=== PATIENT | male | born 1985 | race Caucasian/White ===

== ENCOUNTER 2017-04-05 17:55 | Emergency (ER) | payer SELFPAY ==
[2017-04-05 18:34] VITALS: BP 125/80
[2017-04-05] MEDS ORDERED: Ketorolac 60 MG/2 ML SDV IM ONE (19:03)
--- NOTE | 2017-04-05 19:54 | CT ---
Head CT Technique: Multiple axial sections through the brain were obtained. Intravenous contrast was not utilized. Comparison: No previous intracranial imaging. Findings: Ventricles along with basal cisterns and sulci over the convexities are within normal limits for the patient's age. No abnormal parenchymal densities are seen. No evidence of intracranial hemorrhage. No midline shift or mass effect is seen. Bone window settings were reviewed which shows no acute calvarial abnormality. Impression: 1. Nothing acute is seen on noncontrast head CT exam. Diagnostic code #1
--- NOTE | 2017-04-05 19:54 | CT ---
CT cervical spine Technique: Multiple axial sections were obtained from above C1 inferiorly to the bottom of T1. Reconstructed sagittal and coronal images were reviewed. Findings: Posterior skull base is intact. Vertebral body heights and disc spaces are maintained. No fracture is seen. No bony central or bony neural foraminal stenosis is seen. No abnormal subluxation is seen on the reconstructed sagittal images. Impression: 1. Nothing acute is seen on CT study of the cervical spine. Diagnostic code #1
--- NOTE | 2017-04-05 19:56 | CT ---
CT facial bones Technique: Multiple axial sections through the facial bones were obtained. Reconstructed coronal and sagittal images were reviewed. Findings: Mild mucosal thickening is seen within the right maxillary sinuses as well as ethmoid sinuses. Minimal mucosal thickening is seen within the inferior left maxillary sinus. Right and left globes are symmetric. Dental caries appear to be present on both sides mostly within the maxillary molars. No facial bone fracture is identified. Impression: 1. Mild sinus findings as noted above most likely chronic. 2. Dental caries appear to be present mostly within the maxillary molars. 3. No acute facial bone abnormality is seen. Diagnostic code #3
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
== END 2017-04-05 20:24 | disposition home or self-care (01) ==
LOC: JD.ED 17:55
DX: S01.511A Laceration without foreign body of lip, initial encounter (principal); F17.210 Nicotine dependence, cigarettes, uncomplicated; Y04.2XXA Assault by strike against or bumped into by another person, initial encounter
CPT/HCPCS: 70450; 70486; 72125; 96372; 99283; J1885

== ENCOUNTER 2017-09-29 04:55 | Emergency (ER) | payer SELFPAY ==
[2017-09-29 05:08] VITALS: BP 156/98
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
== END 2017-09-29 05:56 | disposition home or self-care (01) ==
LOC: JD.ED 04:55
DX: S31.050A Open bite of lower back and pelvis without penetration into retroperitoneum, initial encounter (principal); F17.210 Nicotine dependence, cigarettes, uncomplicated; W50.3XXA Accidental bite by another person, initial encounter
CPT/HCPCS: 99283

== ENCOUNTER 2019-04-23 18:15 | Emergency (ER) | payer MEDICAID ==
[2019-04-23 18:36] VITALS: BP 117/90; PULSE 71
[2019-04-23] MEDS ORDERED: Ketorolac 60 MG/2 ML SDV IM ONE (19:07)
--- NOTE | 2019-04-23 19:14 | EDM.PDOC ---
ED HPI GENERAL MEDICAL PROBLEM - General Chief Complaint: Upper Extremity Injury/Pain Stated Complaint: LT WRIST PAIN Time Seen by Provider: 04/23/19 18:26 Source of Information: Reports: Patient, RN Notes Reviewed History Limitations: Reports: No Limitations - History of Present Illness INITIAL COMMENTS - FREE TEXT/NARRATIVE: Patient is a 33-year-old male who presents to the ED for the evaluation of left wrist/hand pain. Patient states that this started pretty suddenly around 3 days ago, he is not really sure of what caused it. There is no trauma to the area that he can recount. Patient states that he does have some pain into his forearm with since last extension of his wrist. Patient states there is some associated numbness and tingling with this. 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 He states he is right-handed. He has been using 800 mg ibuprofen, and this did not seem to help much. His last dose was this morning. He would rate his pain at a 10 out of 10 with any sort of movement. Patient does not have a primary care provider. Left Hand Pain Score (Numeric/FACES): 10 - Related Data Allergies Allergy/AdvReac Type Severity Reaction Status Date / Time No Known Allergies Allergy Verified 04/23/19 18:36 Home Meds: Home Meds Buprenorphine HCl/Naloxone HCl [Suboxone 4 mg-1 mg Sl Film] 16.25 mg SL DAILY [History] predniSONE 20 mg PO ASDIRECTED #15 tab 04/23/19 [Rx] Past Medical History Psychiatric History: Reports: Addiction - Past Surgical History Musculoskeletal Surgical History: Reports: ORIF Social & Family History - Family History Family Medical History: Noncontributory - Tobacco Use Smoking Status *Q: Current Every Day Smoker Years of Tobacco use: 5 Packs/Tins Daily: 0.5 - Caffeine Use Caffeine Use: Reports: Coffee - Recreational Drug Use Recreational Drug Use: No - Living Situation & Occupation Living situation: Reports: Single, with Significant Other (Girlfriend + her daughter) Occupation: Employed ([employer]) Review of Systems - Review of Systems Review Of Systems: See Below Constitutional: Denies: Chills, Fever Respiratory: Denies: Shortness of Breath, Cough Cardiovascular: Denies: Chest Pain Musculoskeletal: Reports: Joint Swelling (Left wrist) Skin: Denies: Bruising, Erythema Neurological: Reports: Numbness (L wrist), Tingling (L wrist) ED EXAM, GENERAL - Physical Exam Exam: See Below Exam Limited By: No Limitations General Appearance: Alert, WD/WN, No Apparent Distress Eye Exam: Bilateral Eye: EOMI, Normal Inspection, PERRL Respiratory/Chest: No Respiratory Distress, Lungs Clear, Normal Breath Sounds, No Accessory Muscle Use, Chest Non-Tender Cardiovascular: Normal Peripheral Pulses, Regular Rate, Rhythm, No Murmur Peripheral Pulses: 3+: Radial (L), Radial (R) Extremities: Normal Inspection, Normal Capillary Refill, Limited Range of Motion (of L wrist with flexion/extension), Other (tinel's slightly positive) Neurological: Alert, Oriented, Normal Cognition, No Motor/Sensory Deficits Psychiatric: Normal Affect, Normal Mood Skin Exam: Warm, Dry, Intact, Normal Color, No Rash Course - Vital Signs Last Recorded V/S: Last Vital Signs Temp 98.6 F 04/23/19 18:34 Pulse 71 04/23/19 18:34 Resp 16 04/23/19 18:34 BP 117/90 04/23/19 18:34 Pulse Ox 98 04/23/19 18:34 - Orders/Labs/Meds Orders: Active Orders 24 hr Category Date Time Status Wrist Comp Min 3V Lt [CR] Stat Exams 04/23/19 19:07 Ordered DME for Discharge [COMM] Routine Oth 04/23/19 19:46 Ordered Meds: Medications Discontinued Medications Generic Name Dose Route Start Last Admin Trade Name Freq PRN Reason Stop Dose Admin Ketorolac Tromethamine 60 mg 04/23/19 19:07 04/23/19 19:19 Toradol IM 04/23/19 19:08 60 mg ONETIME ONE Administration - Re-Assessments/Exams Free Text/Narrative Re-Assessment/Exam: 04/23/19 19:13 Patient presents to the ED for evaluation of left wrist pain. Did order left wrist x-ray, 60 mg IM Toradol for initial management. Due to the patient's history of repetitive motions at work, I suspect possible carpal tunnel. I did explain this to the and the patient, and I did tell him conservative management should be tried before they have a further Ortho follow-up. They seem to be understanding of this at this time. 04/23/19 19:46 X-ray is done and demonstrates no fracture or other bony abnormalities at this time. Patient will be discharged home with a wrist splint and a prescription for prednisone on the working notion that this might be carpal tunnel. Departure - Departure Time of Disposition: 19:47 Disposition: Home, Self-Care 01 Condition: Fair Clinical Impression: Pain and swelling of left wrist - Discharge Information *PRESCRIPTION DRUG MONITORING PROGRAM REVIEWED*: No *COPY OF PRESCRIPTION DRUG MONITORING REPORT IN PATIENT JOHN: No Prescriptions: predniSONE 20 mg PO ASDIRECTED #15 tab Instructions: Wrist Pain, Adult, [id number] Referrals: PCP,None [Primary Care Provider] - Forms: ED Department Discharge Additional Instructions: You have been evaluated in the ED for your left wrist pain. Your x-ray demonstrated no obvious fracture or bony abnormality. Please use ice as tolerated to the affected area. Please try to elevate the affected area to relieve swelling. You were given a prescription for prednisone, please take as directed for further pain/inflammation relief. Please use the wrist splint provided, especially at night, you may also use during the day if it provides you pain relief. Recommend you follow-up with your primary care physician in about 1 week's time or after you finish the prednisone, please call [phone] to follow-up with a family care provider of choice. Please return to ED if your symptoms should change or worsen. Sepsis Event Note - Evaluation Sepsis Screening Result: No Definite Risk - Focused Exam Vital Signs: Vital Signs Temp Pulse Resp BP Pulse Ox 04/23/19 18:34 98.6 F 71 16 117/90 98 Date Exam was Performed: 04/23/19 Time Exam was Performed: 19:46 - My Orders Last 24 Hours: My Active Orders 04/23/19 19:07 Wrist Comp Min 3V Lt [CR] Stat 04/23/19 19:46 DME for Discharge [COMM] Routine - Assessment/Plan Last 24 Hours: My Active Orders 04/23/19 19:07 Wrist Comp Min 3V Lt [CR] Stat 04/23/19 19:46 DME for Discharge [COMM] Routine
--- NOTE | 2019-04-24 08:29 | CR ---
Left wrist: Four views of the left wrist were obtained. Comparison: Previous left wrist study of 01/05/18. Joint spaces are preserved. No fracture, dislocation or other bony abnormality is appreciated. Impression: 1. No abnormality is identified on left wrist exam. 2. No change from previous study is seen. Diagnostic code #1 This report was dictated in [place] Standard Time
== END 2019-04-23 20:13 | disposition home or self-care (01) ==
LOC: JD.ED 18:15
DX: M25.432 Effusion, left wrist (principal); F17.210 Nicotine dependence, cigarettes, uncomplicated
CPT/HCPCS: 73110; 96372; 99284; J1885; 99283

== ENCOUNTER 2023-06-18 15:49 | Emergency (ER) | payer BC, MEDICAID ==
[2023-06-18 16:02] VITALS: BP 116/64; PULSE 89
[2023-06-18] MEDS ORDERED: Cyclobenzaprine 10 MG Tab PO ONE ×2 (16:11→16:21)
[2023-06-18] MEDS: Ketorolac 60 MG/2 ML SDV IM ONE (16:34)
== END 2023-06-18 16:53 | disposition home or self-care (01) ==
LOC: JD.ED 15:49
DX: S39.012A Strain of muscle, fascia and tendon of lower back, initial encounter (principal); Z79.899 Other long term (current) drug therapy; X50.0XXA Overexertion from strenuous movement or load, initial encounter; Y93.89 Activity, other specified
CPT/HCPCS: 96372; 99283; J1885

== ENCOUNTER 2024-01-02 13:02 | Emergency (ER) | payer SELFPAY ==
[2024-01-02 13:14] VITALS: PULSE 97
[2024-01-02 13:55] LABS: BASOPHILS PERCENT AUTO 0.3 % (0.0-1.0); EOSINOPHILS ABSOLUTE AUTO 0.1 K/mm3 (0.0-0.4); EOSINOPHILS PERCENT AUTO 1.5 % (0.0-6.0); HEMATOCRIT 44.8 % (42.0-52.0); HEMOGLOBIN 15.5 gm/dl (14.0-18.0); IMMATURE GRAN ABSOLUTE AUTO 0.03 K/mm3 (0.00-0.05); IMMATURE GRAN PERCENT AUTO 0.3 % (0.0-0.4); LYMPHOCYTES ABSOLUTE AUTO 1.7 K/mm3 (1.0-4.8); LYMPHOCYTES PERCENT AUTO 19.4 % (24.0-44.0); MEAN CORPUSCULAR HEMOGLOBIN 29.2 pg (28.0-32.0); MEAN CORPUSCULAR HGB CONC 34.6 g/dl (32.0-36.0); MEAN CORPUSCULAR VOLUME 84.5 fl (83.0-99.0); MEAN PLATELET VOLUME 9.3 fl (9.4-12.4); MONOCYTES ABSOLUTE AUTO 0.3 K/mm3 (0.0-0.8); MONOCYTES PERCENT AUTO 3.8 % (0.0-8.0); NEUTROPHILS ABSOLUTE AUTO 6.5 K/mm3 (1.8-7.7); NEUTROPHILS PERCENT AUTO 74.7 % (41.0-71.0); PLATELET COUNT,PLT 271 K/mm3 (150-400); WHITE BLOOD CELL COUNT,WBC 8.75 K/mm3 (3.9-11.3)
[2024-01-02 14:22] LABS: BARBITURATE SCREEN,URINE NEGATIVE (CUTOFF=200); BENZODIAZEPINES SCREEN,URINE NEGATIVE (CUTOFF=150); BUPRENORPHINE SCREEN,URINE NEGATIVE (CUTOFF=10); METHADONE SCREEN, URINE NEGATIVE (CUT0FF=200); METHAMPHETAMINES SCREEN, URINE PRESUMPTIVE POSITIVE (CUTOFF=500); OXYCODONE SCREEN,URINE NEGATIVE (CUT0FF=100); THC SCREEN,URINE 20 NG/ML PRESUMPTIVE POSITIVE (CUTOFF=50)
[2024-01-02 14:26] LABS: AMPHETAMINES SCREEN, URINE PRESUMPTIVE POSITIVE (CUTOFF=500)
[2024-01-02 14:26] LABS: A/G RATIO 1.2 (1-2); ALANINE AMINOTRANSFERASE,ALT 54 U/L (16-63); ALKALINE PHOSPHATASE 76 U/L (46-116); ANION GAP 11.8 (5-15); ASPARTATE AMNIOTRANSFERASE,AST 27 U/L (15-37); BILIRUBIN TOTAL 0.6 mg/dL (0.2-1.0); BLOOD UREA NITROGEN,BUN 9 mg/dL (7-18); CALCIUM 9.4 mg/dL (8.5-10.1); CARBON DIOXIDE,CO2 28 mEq/L (21-32); CHLORIDE,CL 104 mEq/L (98-107); ESTIMATED GFR 100 mL/min (>60); GLUCOSE RANDOM 103 mg/dL (70-99); POTASSIUM,K 3.8 mEq/L (3.5-5.1); PROTEIN TOTAL,TP 7.4 g/dl (6.4-8.2); SODIUM,NA 140 mEq/L (136-145); TSH 0.652 uIU/mL (0.358-3.74)
[2024-01-02 14:28] LABS: ACETAMINOPHEN 0 ug/mL (10-30)
[2024-01-02 14:47] LABS: CORONAVIRUS COVID-19 NAA NEGATIVE (NEGATIVE); INFLUENZA A NAA NEGATIVE (NEGATIVE); RESPIRATORY SYNCYTIAL VIR NAA NEGATIVE (NEGATIVE)
[2024-01-02] MEDS: LORazepam 1 MG Tab PO ONE (15:53)
[2024-01-02 18:50] VITALS: BP 125/88
== END 2024-01-02 16:24 ==
LOC: JD.ED 13:02
DX: R45.851 Suicidal ideations (principal); R45.850 Homicidal ideations; F17.210 Nicotine dependence, cigarettes, uncomplicated
CPT/HCPCS: 0241U; 36415; 80053; 80143; 80179; 80306; 80307; 84443; 85025; 99285; A9270